=== PATIENT | female | born 1955 | race Two or more races ===

== ENCOUNTER 2017-12-01 10:44 | Emergency (ER) | payer MEDICARE, MEDICAID ==
[~2017-12-01] VITALS: Ht 565.3 cm; Wt 94.1 kg
[~2017-12-01 10:44] MED LIST: ALBU18HF2 IH; ATEN-169 PO; CYCL-394 PO; DULO-31 PO; HYDR1CAP2 PO; ZOLP5TAB8 PO
[2017-12-01 11:40] LABS: BASOPHILS % (AUTO) 0.4 % (0-1); EOSINOPHILS # (AUTO) 0.1 X10'3 (0-0.9); EOSINOPHILS % (AUTO) 1.8 % (0-6); HEMATOCRIT 46.4 % (35.0-45.0); HEMOGLOBIN 15.9 g/dl (12.0-16.0); LYMPHOCYTES # (AUTO) 2.2 X10'3 (1.1-4.8); LYMPHOCYTES % (AUTO) 30.1 % (21-51); MEAN CORPUSCULAR HEMOGLOBIN 31.1 PG (27.0-31.0); MEAN CORPUSCULAR HGB CONC 34.2 % (33.0-36.5); MEAN CORPUSCULAR VOLUME 90.9 FL (78-98); MONOCYTES # (AUTO) 0.5 X10'3 (0-0.9); MONOCYTES % (AUTO) 6.3 % (2-12); NEUTROPHILS # (AUTO) 4.5 X10'3 (1.8-7.7); NEUTROPHILS % (AUTO) 61.4 % (42-75); PLATELET COUNT 275 X10'3 (140-440); RED BLOOD COUNT 5.11 X10'6 (4.20-5.60); RED CELL DISTRIBUTION WIDTH 13.6 % (11.5-14.5); WHITE BLOOD COUNT 7.4 X10'3 (4.5-11.0)
[2017-12-01 11:50] LABS: PARTIAL THROMBOPLASTIN TIME 25 SECONDS (22-32); PROTHROMBIN TIME 10.5 SECONDS (9.0-12.0)
[2017-12-01 11:51] LABS: CLARITY,URINE CLOUDY (Clear); COLOR,URINE YELLOW (Yellow); GLUCOSE, URINE NEGATIVE (Neg); KETONES,URINE NEGATIVE (Neg); LEUKOCYTE ESTERASE ,URINE TRACE (Neg); NITRITES, URINE NEGATIVE (Neg); OCCULT BLOOD,URINE MODERATE (Neg); PH,URINE 5.5 (4.8-8.0); PROTEIN,URINE TRACE mg/dl (Neg); UROBILINOGEN,URINE 0.2 E.U/dL (0.2-1.0)
[2017-12-01 11:54] LABS: ALANINE AMINOTRANSFERASE 43 U/L (12-78); ALBUMIN 3.8 G/DL (3.4-5.0); ALBUMIN/GLOBULIN RATIO 1.1 (1.1-1.5); ALKALINE PHOSPHATASE 113 IU/L (46-116); ANION GAP 12 (8-16); ASPARTATE AMINO TRANSFERASE 31 U/L (10-37); BLOOD UREA NITROGEN 12 MG/DL (7-18); CALCIUM 8.7 MG/DL (8.5-10.1); CHLORIDE 103 MMOL/L (99-107); GLUCOSE 169 MG/DL (70-104); LIPASE 129 U/L (73-393); POTASSIUM 3.5 MMOL/L (3.5-5.1); SODIUM 141 MMOL/L (135-145); TOTAL CARBON DIOXIDE 26.3 MMOL/L (24-32); TOTAL PROTEIN 7.2 G/DL (6.4-8.2); eGFR 56 ML/MIN
[2017-12-01] MEDS ORDERED: normal saline 1000ML IV soln IVB ONE (12:05)
[2017-12-01] MEDS ORDERED: ondansetron/PF 4mg/2ml inj IV ONE (12:05)
[2017-12-01 12:06] LABS: UA COLLECTION TYPE CLN CATCH MIDSTREAM
[2017-12-01 12:07] LABS: HYALINE CASTS >30 /LPF (NEGATIVE); MUCUS STRANDS MANY /LPF (Neg); SQUAMOUS EPITHELIAL CELL,UR MANY /LPF (FEW)
[2017-12-01 12:08] LABS: BACTERIA,URINE 2+ /HPF (Neg); RBC,URINE 0-2 /HPF (0-2); WBC,URINE 0-4 /HPF (0-4)
[2017-12-01] MEDS ORDERED: ciprofloxacin 250mg tablet PO ONE (12:20)
[2017-12-01 12:31] VITALS: BP 147/85
[2017-12-01] MEDS ORDERED: CIPR-230 PO (12:39)
== END 2017-12-01 12:51 | disposition home or self-care (01) ==
LOC: ER 10:45
DX: N39.0 Urinary tract infection, site not specified (principal); Q25.46 Tortuous aortic arch; M41.84 Other forms of scoliosis, thoracic region; I10 Essential (primary) hypertension; J45.909 Unspecified asthma, uncomplicated; E11.9 Type 2 diabetes mellitus without complications; Z90.49 Acquired absence of other specified parts of digestive tract; Z98.890 Other specified postprocedural states; Z56.0 Unemployment, unspecified; Z79.2 Long term (current) use of antibiotics; Z79.899 Other long term (current) drug therapy
CPT/HCPCS: 36415; 71045; 80053; 81001; 83690; 84484; 85025; 85610; 85730; 93005; 96361; 96374; 99285; J2405; J7030

== ENCOUNTER 2018-12-28 13:57 | Emergency (ER) | payer MEDICARE, MEDICAID ==
[~2018-12-28] VITALS: Ht 162.6 cm; Wt 95.5 kg
[2018-12-28 14:08] VITALS: BP 199/125
== END 2018-12-28 15:39 | disposition home or self-care (01) ==
LOC: ER 13:58
DX: M79.671 Pain in right foot (principal); I10 Essential (primary) hypertension; J45.909 Unspecified asthma, uncomplicated; E11.9 Type 2 diabetes mellitus without complications; F32.9 Major depressive disorder, single episode, unspecified; Z90.49 Acquired absence of other specified parts of digestive tract; Z98.890 Other specified postprocedural states; Z56.0 Unemployment, unspecified; Z79.899 Other long term (current) drug therapy
CPT/HCPCS: 99281

== ENCOUNTER 2018-12-29 09:25 | Day surgery (SDC) | payer MEDICARE, MEDICAID ==
[2018-12-29] MEDS ORDERED: LIDOcaine 1%/PF 5ML 10 MG/ML VIAL ONE (10:49)
[2018-12-29] MEDS ORDERED: mupirocin 2% ointment 22GM ONE (10:58)
== END 2018-12-29 10:30 | disposition home or self-care (01) ==
LOC: WOUND CARE 09:25
PROVIDERS: ATTEND Surgery
DX: E11.621 Type 2 diabetes mellitus with foot ulcer (principal); L97.521 Non-pressure chronic ulcer of other part of left foot limited to breakdown of skin; S90.852A Superficial foreign body, left foot, initial encounter; E11.40 Type 2 diabetes mellitus with diabetic neuropathy, unspecified; E11.65 Type 2 diabetes mellitus with hyperglycemia; I10 Essential (primary) hypertension; J45.909 Unspecified asthma, uncomplicated; F32.9 Major depressive disorder, single episode, unspecified; F17.200 Nicotine dependence, unspecified, uncomplicated; Z79.899 Other long term (current) drug therapy; Z90.49 Acquired absence of other specified parts of digestive tract; Z98.890 Other specified postprocedural states; X58.XXXA Exposure to other specified factors, initial encounter; Y93.89 Activity, other specified; Y92.89 Other specified places as the place of occurrence of the external cause; Y99.8 Other external cause status
CPT/HCPCS: 10120; 36416; 73620; 82948; A4663

== ENCOUNTER 2019-01-18 10:10 | Outpatient (CLI) | payer MEDICARE, MEDICAID ==
[2019-01-18] MEDS ORDERED: LIDOcaine 2% 5ml jelly ONE (10:47)
== END 2019-01-18 11:29 | disposition home or self-care (01) ==
LOC: WOUND CARE 10:10
PROVIDERS: ATTEND Surgery
DX: E11.621 Type 2 diabetes mellitus with foot ulcer (principal); L97.521 Non-pressure chronic ulcer of other part of left foot limited to breakdown of skin; E11.40 Type 2 diabetes mellitus with diabetic neuropathy, unspecified; E11.65 Type 2 diabetes mellitus with hyperglycemia; I10 Essential (primary) hypertension; J45.909 Unspecified asthma, uncomplicated; F32.9 Major depressive disorder, single episode, unspecified; F17.200 Nicotine dependence, unspecified, uncomplicated; Z79.899 Other long term (current) drug therapy; Z90.49 Acquired absence of other specified parts of digestive tract; Z98.890 Other specified postprocedural states
CPT/HCPCS: 36416; 82948; G0463; L3260; A4663; A6234

== ENCOUNTER 2019-01-28 09:10 | Outpatient (CLI) | payer MEDICARE, MEDICAID ==
[2019-01-28] MEDS ORDERED: LIDOcaine 2% 5ml jelly ONE (10:00)
[2019-02-08] MEDS ORDERED: NAPR-996 PO (15:13)
[2019-02-08] MEDS ORDERED: LISI10TA4 PO (15:13)
== END 2019-01-28 10:55 | disposition home or self-care (01) ==
LOC: WOUND CARE 09:10
PROVIDERS: ATTEND Surgery
DX: E11.621 Type 2 diabetes mellitus with foot ulcer (principal); L97.521 Non-pressure chronic ulcer of other part of left foot limited to breakdown of skin; E11.40 Type 2 diabetes mellitus with diabetic neuropathy, unspecified; E11.65 Type 2 diabetes mellitus with hyperglycemia; I10 Essential (primary) hypertension; J45.909 Unspecified asthma, uncomplicated; F32.9 Major depressive disorder, single episode, unspecified; F17.200 Nicotine dependence, unspecified, uncomplicated; Z79.899 Other long term (current) drug therapy; Z90.49 Acquired absence of other specified parts of digestive tract; Z98.890 Other specified postprocedural states
CPT/HCPCS: 36416; 73630; 82948; G0463; A4663; A6234

== ENCOUNTER 2019-02-09 07:42 | Day surgery (SDC) | payer MEDICARE, MEDICAID ==
[2019-02-08 15:43] LABS: BASOPHILS % (AUTO) 0.4 % (0-1); EOSINOPHILS # (AUTO) 0.1 X10'3 (0-0.9); EOSINOPHILS % (AUTO) 1.5 % (0-6); LYMPHOCYTES # (AUTO) 2.8 X10'3 (1.1-4.8); LYMPHOCYTES % (AUTO) 39.4 % (21-51); MEAN CORPUSCULAR HEMOGLOBIN 31.6 PG (27.0-31.0); MEAN CORPUSCULAR HGB CONC 33.9 g/dL (33.0-36.5); MEAN PLATELET VOLUME 8.7 FL (7.4-10.4); MONOCYTES # (AUTO) 0.5 X10'3 (0-0.9); MONOCYTES % (AUTO) 6.3 % (2-12); NEUTROPHILS # (AUTO) 3.8 X10'3 (1.8-7.7); NEUTROPHILS % (AUTO) 52.4 % (42-75); PRE OP HEMATOCRIT 47.9 % (35.0-45.0); PRE OP HEMOGLOBIN 16.2 g/dL (12.0-16.0); PRE OP PLATELET COUNT 243 X10'3 (140-440); RED BLOOD COUNT 5.15 X10'6 (4.20-5.60); RED CELL DISTRIBUTION WIDTH 13.8 % (11.5-14.5)
[2019-02-08 15:54] LABS: ALBUMIN 4.2 G/DL (3.4-5.0); ALBUMIN/GLOBULIN RATIO 1.3 (1.1-1.5); ALKALINE PHOSPHATASE 83 IU/L (46-116); BLOOD UREA NITROGEN 10 MG/DL (7-18); BUN/CREATININE RATIO 12.5 (6.6-38.0); CALCIUM 9.1 MG/DL (8.5-10.1); CHLORIDE 106 MMOL/L (99-107); PRE OP ALT 35 U/L (30-65); PRE OP ANION GAP 9 (8-16); PRE OP AST 29 U/L (10-37); PRE OP BILIRUB, TOTAL 0.7 MG/DL (0.0-1.0); PRE OP GLUCOSE 101 MG/DL (70-104); PRE OP POTASSIUM 3.5 MMOL/L (3.4-5.1); PRE OP SODIUM 144 MMOL/L (135-145); TOTAL PROTEIN 7.5 G/DL (6.4-8.2); eGFR 73 ML/MIN
[2019-02-08 15:55] LABS: CLARITY,URINE SLIGHTLY CLOUDY (Clear); COLOR,URINE YELLOW (Yellow); GLUCOSE, URINE NEGATIVE (Neg); KETONES,URINE NEGATIVE (Neg); LEUKOCYTE ESTERASE ,URINE NEGATIVE (Neg); NITRITES, URINE NEGATIVE (Neg); OCCULT BLOOD,URINE MODERATE (Neg); PROTEIN,URINE NEGATIVE (Neg); UROBILINOGEN,URINE 0.2 E.U/dL (0.2-1.0)
[2019-02-08 16:17] LABS: UA COLLECTION TYPE CLN CATCH MIDSTREAM
[2019-02-08 16:18] LABS: SQUAMOUS EPITHELIAL CELL,UR FEW /LPF (FEW)
[2019-02-08 16:19] LABS: BACTERIA,URINE 1+ /HPF (Neg); MUCUS STRANDS MODERATE /LPF (Neg); TRANSITIONAL EPI CELLS,URINE FEW /HPF; WBC,URINE 0-4 /HPF (0-4)
[~2019-02-09] VITALS: Ht 162.6 cm; Wt 95.3 kg
[2019-02-09] VITALS (8 sets, daily range): BP systolic 114–179; BP diastolic 68–99
[~2019-02-09 07:42] MED LIST changes: -ATEN-169 PO; -CYCL-394 PO; -DULO-31 PO; -HYDR1CAP2 PO; +LISI10TA4 PO; +NAPR-996 PO; -ZOLP5TAB8 PO; +cefazolin/dext.iso 2gm/100ml 100 ML IV ONE; +famotidine 20mg tablet PO ONE
[2019-02-09] MEDS: ringers solution, lacted 1,000 ML IV SCH ×2 (08:05→08:27)
[2019-02-09] MEDS ORDERED: ringers solution, lacted 1,000 ML IV SCH (09:23)
[2019-02-09] MEDS ORDERED: morphine 4 MG/ML inj SYRINge IV PRN ×2 (09:25)
[2019-02-09] MEDS ORDERED: proCHLORperazine 10 MG/2 ml inj IV PRN (09:25)
[2019-02-09] MEDS ORDERED: ondansetron/PF 4mg/2ml inj IV PRN (09:25)
[2019-02-09] MEDS ORDERED: meperidine/PF 25mg/ml syringe IV PRN ×3 (09:25)
[2019-02-09] MEDS ORDERED: LIDOcaine 1% 30ml preserv. free vial ONE (09:41)
[2019-02-09] MEDS ORDERED: fentaNYL/PF 50MCG/1 ML 2ML syringe ONE (09:54)
[2019-02-09] MEDS ORDERED: MIDAZolam 5mg/5ml vial ONE (09:54)
[2019-02-09] MEDS ORDERED: ketamine 50mg/5ml syringe ONE (10:01)
[2019-02-09] MEDS ORDERED: BUPIVAcaine/PF 2.5 mg/ml (0.25%) 30ml vial ONE (10:04)
[2019-02-09] MEDS ORDERED: povidone-iodine 10% topical ointment 28.4gm TP ONE (10:12)
[2019-02-09] MEDS ORDERED: labetalol 20mg/4ml (5mg/ml) syringe IV ONE (10:13)
[2019-02-09] MEDS ORDERED: hydrALAZINE 20mg/ml inj. IV ONE (10:13)
--- NOTE | 2019-02-09 10:20 | NUR ---
Received from OR via BED, accompanied by Anesthesiologist DR COATES--- and report given by Anesthesiolgist. PATIENT A&OX4, DENIES PAIN, V/S WNL, NEUROVASCULAR CHECKS INTACT, 20G PIV LUE, SCD ON, DRESSING LEFT FOOT CDI
--- NOTE | 2019-02-09 11:20 | NUR ---
PATIENT A&OX4, DENIES PAIN, V/S WNL, NEUROVASCULAR CHECKS INTACT, 20G PIV LUE D/C, SCD OFF, DRESSING LEFT FOOT CDI. I HAVE REVIEWED D/C INSTRUCTIONS WITH PATIENT AND FAMILY AND THEY HAVE VERBALIZED UNDERSTANDING. PATIENT D/C HOME WITH ALL BELONGINGS AND FAMILY GAVE TRANSPORT HOME.
== END 2019-02-09 11:20 | disposition home or self-care (01) ==
LOC: PAS 07:42
PROVIDERS: ATTEND Surgery
DX: M60.272 Foreign body granuloma of soft tissue, not elsewhere classified, left ankle and foot (principal); I10 Essential (primary) hypertension; G47.33 Obstructive sleep apnea (adult) (pediatric); M19.90 Unspecified osteoarthritis, unspecified site; E11.9 Type 2 diabetes mellitus without complications; Z98.890 Other specified postprocedural states; Z79.899 Other long term (current) drug therapy
CPT/HCPCS: 28190; 36415; 80053; 81001; 82948; 85025; 93005; J0360; J2001; J2250; J3010; J3490; 88305; 88311; A4215; A4618; A6449; A7000; J7120

== ENCOUNTER 2019-02-19 08:50 | Outpatient (CLI) | payer MEDICARE, MEDICAID ==
[~2019-02-19 08:50] MED LIST changes: -cefazolin/dext.iso 2gm/100ml 100 ML IV ONE; -famotidine 20mg tablet PO ONE
[2019-02-19] MEDS ORDERED: LIDOcaine/PRILOcaine 5gm cream TP ONE ×2 (08:57→09:13)
== END 2019-02-19 10:20 | disposition home or self-care (01) ==
LOC: WOUND CARE 08:50 → EDSTATUS 09:00 → WOUND CARE 10:20
PROVIDERS: ATTEND Surgery
DX: E11.621 Type 2 diabetes mellitus with foot ulcer (principal); L97.521 Non-pressure chronic ulcer of other part of left foot limited to breakdown of skin; E11.40 Type 2 diabetes mellitus with diabetic neuropathy, unspecified; E11.65 Type 2 diabetes mellitus with hyperglycemia; I10 Essential (primary) hypertension; J45.909 Unspecified asthma, uncomplicated; F32.9 Major depressive disorder, single episode, unspecified; F17.200 Nicotine dependence, unspecified, uncomplicated; G47.33 Obstructive sleep apnea (adult) (pediatric); M19.90 Unspecified osteoarthritis, unspecified site; Z79.899 Other long term (current) drug therapy; Z90.49 Acquired absence of other specified parts of digestive tract; Z98.890 Other specified postprocedural states
CPT/HCPCS: 36416; 82948; G0463; A4663